=== PATIENT | male | born 1955 | race Caucasian/White ===

== ENCOUNTER 2020-01-29 13:10 | Outpatient (CLI) | payer OTHER, SELFPAY ==
--- NOTE | ~2020-01-29 | MM_ITS ---
EXAMINATION: MM diagnostic mammo unilat RT HISTORY: Screening mammogram TECHNIQUE: Full field digital craniocaudal and mediolateral oblique views of the right breast were ob tained. Mediolateral oblique view of the left breast is obtained. CAD analysis was submitted and inte rpreted. COMPARISON: No prior mammogram is available for comparison at this institution. BREAST PARENCHYMAL COMPOSITION: The breasts are almost entirely fatty. FINDINGS: There is flame-shaped subareolar density in the right breast which is asymmetric compared t o the left. No suspicious mass, calcification, or architectural distortion are identified. IMPRESSION: 1. Findings consistent with asymmetric gynecomastia, left greater than right. Clinical follow-up is r ecommended. BI-RADS Category 2: Benign finding(s). Reviewed, dictated and finalized at location A. 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 Findings consistent with asymmetric gynecomastia, left greater than right. C linical follow-up is recommended. BI-RADS Category 2: Benign finding(s).
== END 2020-01-29 13:11 | disposition home or self-care (01) ==
LOC: ANHIMG 13:14
PROVIDERS: PCP Nurse Practitioner Adult Health; Visit Provider Nurse Practitioner Adult Health
DX: N62 Hypertrophy of breast (principal)
CPT/HCPCS: 77065

== ENCOUNTER 2020-02-10 14:11 | Outpatient (CLI) | payer OTHER, SELFPAY ==
--- NOTE | ~2020-02-10 | CT_ITS ---
EXAMINATION: CT abdomen pelvis w con DATE: 02/10/2020 14:52 INDICATION: Prostate cancer. TECHNIQUE: Computed tomography (CT) of the abdomen and pelvis was performed with 100 mL Omnipaque 350 intravenous contrast. Automated exposure control and iterative reconstruction technique were employe d. The dose-length product was 231.10 mGy-cm. COMPARISON: None. FINDINGS: The visualized portions of the lung bases are clear without pneumonia or pleural effusion. The heart size is normal. No pericardial effusion. Calcifications in the liver and spleen are consist ent with old granulomatous disease. The gallbladder, pancreas, adrenal glands, and right kidney are n ormal. There is a 6 mm cyst in left kidney. The prostate is mildly enlarged. There is diverticulosis of the colon without evidence of diverticulitis. There are no dilated loops of bowel. The appendix is normal. There are no pathologically enlarged lymph nodes. There is no free intraperitoneal fluid. Th ere is severe lumbar spondylosis. IMPRESSION: 1. No evidence of metastatic disease. Reviewed, dictated and finalized at location A. 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
[2020-02-10 14:42] LABS: Estimated Glomerular Filt Rate > 60
== END 2020-02-10 14:12 | disposition home or self-care (01) ==
PROVIDERS: PCP Nurse Practitioner Adult Health; Visit Provider Urology
DX: C61 Malignant neoplasm of prostate (principal)
CPT/HCPCS: 74177; Q9967

== ENCOUNTER 2020-05-18 09:23 | Outpatient (CLI) | payer OTHER, SELFPAY ==
--- NOTE | ~2020-05-18 | XR_ITS ---
EXAMINATION: XR chest 2V DATE: 05/18/2020 10:18 INDICATION: Malignant neoplasm of prostate. TECHNIQUE: Frontal and lateral views of the chest were obtained. COMPARISON: CT abdomen and pelvis 02/10/2020 FINDINGS: Calcified left lung nodules and calcified left hilar lymph nodes are consistent with old gr anulomatous disease. No pleural effusion or pneumothorax. The heart size is normal. IMPRESSION: 1. No acute cardiopulmonary disease. Reviewed, dictated and finalized at location A. ON PAINTER
--- NOTE | 2020-05-18 09:55 | ECG_ITS ---
Measurements Intervals [place] Rate: 85 P: 45 CO: 165 QRS: 66 QRSD: 98 T: 49 QT: 342 QTc: 408 Interpretive Statements SINUS RHYTHM BASELINE ARTIFACT- I, II, III, AVL, AVF NORMAL ECG Electronically Signed On 05-18-2020 10:13:43 DAMPENER by Homar Landry D.O.
[2020-05-18 11:09] LABS: Basophils Percent Auto 0.5 % (0.2-1.2); Eosinophils Absolute Auto 0.1 K/mm3 (0-0.3); Eosinophils Percent Auto 0.8 % (0-4.4); Hematocrit 42.2 % (42.0-52.0); Hemoglobin 13.9 g/dL (14.0-18.0); Immature Granulocyte Absolute 0.03 K/mm3 (0.00-0.031); Immature Granulocyte Percent A 0.5 % (0-0.5); Lymphocytes Absolute Auto 1.68 K/mm3 (0.9-3.2); Lymphocytes Percent Auto 26.8 % (18.3-44.2); Mean Corpuscular HGB Conc 32.9 g/dl (32-36); Mean Corpuscular Hemoglobin 30.8 pg (26-34); Mean Corpuscular Volume 93.4 fl (80-100); Mean Platelet Volume 9.5 fl (7.4-10.4); Monocytes Absolute Auto 0.7 K/mm3 (0.1-0.6); Neutrophils Absolute Auto 3.8 K/mm3 (1.3-6.7); Neutrophils Percent Auto 60.4 % (45.5-73.1); Platelet Count Result 293 k/mm3 (150-375); Red Blood Count 4.52 M/mm3 (4.6-6.20); Red Cell Distribution Width 13.8 % (11.5-14.5); White Blood Count 6.3 K/mm3 (4.5-10.0)
[2020-05-18 11:13] LABS: Add Urine Microscopic? YES; Appearance Urine Clear (Clear); Bilirubin Urine Negative (Negative); Blood Urine Negative (Negative); Color Urine Yellow (Yellow); Glucose Urine UA Negative (Negative); Ketones Urine Negative (Negative); Leukocyte Esterase Ur Negative LEU/UL (Negative); Nitrate Urine Negative (Negative); Protein Urine 1+ mg/dL (Negative); RBC Urine 0-2 /hpf (0-2); Specific Grav Ur 1.018 (1.001-1.035); Urobilinogen Urine Negative mg/dL (<2.0); WBC Urine 0-3 /hpf
[2020-05-18 11:22] LABS: Alanine Aminotransferase 22 U/L (4-50); Albumin Level 4.8 g/dL (3.5-5.1); Alkaline Phosphatase 55 U/L (38-126); Anion Gap 7 mmol/L (8-16); Aspartate Amino Transferase 37 U/L (17-59); Bilirubin,Total 0.4 mg/dL (0.2-1.3); Blood Urea Nitrogen 14 mg/dL (9-20); Calcium 9.8 mg/dL (8.4-10.2); Carbon Dioxide 31 mmol/L (22-30); Chloride 101 mmol/L (98-107); Estimated Glomerular Filt Rate > 60; Glucose 109 mg/dL (75-110); INR 0.9; Potassium 4.5 mmol/L (3.4-5.0); Prothrombin Time 12.8 Seconds (11.1-14.7); Sodium 139 mmol/L (137-145)
[2020-05-18 11:23] LABS: Partial Thromboplastin Time 30.3 SECONDS (22.3-36.8)
== END 2020-05-18 09:24 | disposition home or self-care (01) ==
PROVIDERS: PCP Nurse Practitioner Adult Health; Visit Provider Urology
DX: Z01.818 Encounter for other preprocedural examination (principal); C61 Malignant neoplasm of prostate
CPT/HCPCS: 36415; 71046; 80053; 81001; 85025; 85610; 85730; 86850; 86900; 86901; 93005

== ENCOUNTER → 2020-05-24 00:29 | Outpatient (CLI) | payer OTHER, SELFPAY ==
[2020-05-24 18:02] LABS: SARS-CoV-2 RNA PCR Negative
== END ==
PROVIDERS: PCP Nurse Practitioner Adult Health; Visit Provider Urology
DX: Z01.812 Encounter for preprocedural laboratory examination (principal); Z20.822 Contact with and (suspected) exposure to COVID-19
CPT/HCPCS: C9803; U0003; U0005

== ENCOUNTER 2020-05-27 00:12 | Day surgery (SDC) | payer OTHER, SELFPAY ==
--- NOTE | 2020-05-18 07:53 | P.HP_ITS ---
H&P: HPI History of Present Illness Date/Time: 05/18/20 07:53 Chief Complaint: Prostate cancer Narrative: Atif Rinaldi is a 65 year old male Wound in February 2020 to have a PSA elevation to 19.2. Prostate ultrasound and biopsy showed 4 of 12 cores with Bob 6 and 3+4=7. Recent CT scan the abdomen pelvis with contrast showed no evidence of metastatic disease. Prostate volume by ultrasound was 24 g. After careful discussion of therapeutic options including radiation therapy and its various forms, active surveillance, androgen deprivation and robotic prostatectomy he has elected for the latter. He is aware of the risk of this procedure including, but not limited to, adverse cardiopulmonary events, rectal injury, very to control his cancer with need for adjuvant therapy, erectile dysfunction and urinary incontinence. Review of Systems Cardiovascular: Cardiovascular: Denies chest pain, Denies lightheadedness, Denies palpitations and Denies dyspnea Respiratory: Respiratory: Denies dyspnea Gastrointestinal: Gastrointestinal: Denies diarrhea, Denies nausea and Denies vomiting Genitourinary: Genitourinary: Denies hematuria and Denies dysuria Endocrine: Endocrine: Denies palpitations Exam Const: General: no acute distress Resp: Effort & Inspection: normal respiratory effort GI: Inspection: non-distended GI Palp: No abdominal tenderness and No Guarding due to palpation present (GI) Auscultation: normal bowel sounds Assessment and Plan Assessment and plan (1) Prostate cancer: Code(s): C61 - Malignant neoplasm of prostate Status: Acute Assessment and Plan: * Robotic assisted radical prostatectomy and bilateral pelvic lymphadenectomy
[2020-05-18 09:38] VITALS: BP 160/90; PULSE 90; RESP 20; TEMP 36.3; O2SAT 100; BMI 23.0
--- NOTE | 2020-05-26 13:36 | WPDANESEPPF ---
Anes - Initial Pre Proc Eval Procedure: Operation Date: 05/27/20 07:30 Proposed Procedures p Robotic Assisted Laparoscopic Prostatectomy With Bilateral Pelvic Lymph Node Dissection - Efraín Núñez MD Date/Time: 05/26/20 13:36 Surgeon: Efraín Núñez MD Pre Op Diagnosis: Prostate Cancer Patient Data Age: 65 Gender: M Height: 5 ft 8 in Weight: 68.7 kg Last Vital Signs Temp 97.4 F L 05/18/20 09:38 Pulse 90 05/18/20 09:38 Resp 20 05/18/20 09:38 BP 160/90 H 05/18/20 09:38 Pulse Ox 100 05/18/20 09:38 Allergies Allergy/AdvReac Type Severity Reaction Status Date / Time No Known Allergies Allergy Verified 05/27/20 06:12 Home Medications Medication Instructions Recorded Confirmed Type No Home Medications 05/18/20 05/27/20 History Patient hx anesthesia problems: none Family hx anesthesia problems: none [facility] Past Medical History Medical History (Updated 05/26/20 @ 13:35 by Scott Gloria MD) Prostate cancer Social History Social History Smoking status: Never smoker Second hand tobacco smoke exposure: No Additional smoking assessment comments: DENIES ANY TOBACCO USE Alcohol intake: current Drinks per week: 50 Alcohol use details: BEER Substance use: current Substance use type: marijuana Other substance usage details: OCCASIONAL 2-3 TOKES Last use: 05/17/20 Living arrangements: with family Spiritual care concerns: No Anes - Eval Final PreProcedure Day of Procedure 05/26/20 13:36 Patient weight: normal Heart: regular rate and rhythm Lungs: clear to auscultation Airway: Mallampati scale class II Neurological: alert and oriented Last oral intake: >/= 8 hours ASA classification: III Emergent: no Anesthetic plan: proceed Anesthesia type and monitoring: general ETT and standard monitoring Informed Consent: The patient's anesthetic plan and its attendant risks and benefits were discussed with the patient/family/POA. Questions were solicited and answers provided to the satisfaction of the patient/family/POA.
[2020-05-27] VITALS (13 sets, daily range): BP systolic 121–181; BP diastolic 60–94; PULSE 73–102; RESP 12–16; TEMP 36.3–37.3; O2SAT 95–100
[2020-05-27] MEDS: LACTATED RINGERS 1,000 ML 30 ML IV CONT ×2 (06:36→11:24)
--- NOTE | 2020-05-27 06:37 | WPDHPUPDATE1 ---
History and Physical Update Update Date/Time: 05/27/20 06:37 History and Physical has been reviewed, including an updated exam of the patient. There are NO changes in the patient's condition. Risks, benefits, and alternatives have been discussed and questions answered. Patient agrees to proceed with procedure.
[2020-05-27] MEDS: ceFAZolin 2 GM/D5W 50 ML 2 GM/50 ML BAG IVPB (07:26)
--- NOTE | 2020-05-27 11:21 | PM.PROC ---
Procedure Note - Detailed Date of procedure: 05/27/20 Pre-op diagnosis: Prostate Cancer Procedure performed: Robotic-asssited radical prostatectomy and bilateral pelvic lymphadenectomy Description of procedure: The patient was brought to the operative suite, where he was prepped and draped in routine sterile fashion while in a dorsal lithotomy, deep Trendelenburg position. A supraumbilical 10 mm trocar was placed after insufflation of the abdomen with a Veress needle. Three robotic ports were then placed under direct vision. Two of these were placed in the right lower quadrant - 10 cm and 20 cm lateral to, and in line with, the umbilicus. A third robotic trocar was placed 10 cm to the left of the umbilicus, and 20 cm to the left of the umbilicus, a 12 mm standard laparoscopic trocar was placed to be used as an speech pathologist assistant port. Lastly, a 5 mm trocar was placed in the left upper quadrant midway between the umbilicus and the left robotic trocar. Attention was then turned to the prostatectomy. I opted for a posterior approach in this patient. An incision was made in the parietal peritoneum along the posterior bladder/posterior prostate about 2 cm above the reflection of the peritoneum over the anterior rectum. The seminal vesicles and vas deferens were immediately identified. Dissection is undertaken in a fashion so as to avoid electrocautery as much as possible, particularly near the tips of the seminal vesicles. Dissection was also carried out in the midline so as to avoid any encounters with the ureters. The vas deferens and the seminal vesicles were dissected in their entirety to the base of the prostate. The plane anterior to Denoviller's fascia, anterior to the rectum and posterior to the prostate was then developed. I then dropped the bladder by incising the anterior parietal peritoneum just lateral to the median umbilical ligaments bilaterally. The bladder was dropped from the anterior abdominal and pelvic wall. The endopelvic fascia was identified and incised bilaterally, allowing for dissection of the posterior-lateral aspect of the prostate. The puboprostatic ligaments were transected near their origin from the posterior pubic ramus. This posterior lateral dissection of the prostate is also undertaken in a fashion so as to avoid electrocautery as much as possible. The dorsal vein of the penis is then secured with an 0 -Vicryl ligature. Attention is then turned to the bladder neck. The anterior bladder neck is incised at the vesico-prostatic junction. The previously placed urethral catheter was drawn through the urethrotomy. A very small bladder neck was maintained throughout the remainder of this dissection. The posterior bladder neck was incised in a fashion so as to avoid any injury to the ureteral orifices. Again, the small aperture of the bladder neck was maintained. The previously dissected vas deferens and the seminal vesicles were brought through the posterior bladder neck incision. The lateral prostatic pedicles were then carefully dissected from the lateral aspect of the prostate bilaterally. The prostatic pedicles were secured with Weck clips and transected. The neurovascular bundles were carefully dissected from the posterior-lateral aspect of the prostate. The dorsal vein of the penis was incised with electrocautery. Using cold scissors, the urethra was incised. After withdrawing the previously placed urethral catheter, the posterior urethra was sharply incised, as was the rectalurethralis muscle. Attention was then turned to a bilateral pelvic lymphadenectomy. The limits of this dissection were similar bilaterally. Specifically, the limits were the bifurcation of the common iliac vein proximally, the inguinal ligament distally, the obturator nerve posteriorly and the anterior aspect to the external iliac vein laterally. This dissection was undertaken with care to avoid any injury to the obturator nerve. The prostate, seminal vesicles a
[2020-05-27] MEDS: HYDROmorphone HCL INJ (*CRX) 1 MG/ML SYR 0.5 MG IV PUSH ×3 (11:30→12:07)
--- NOTE | 2020-05-27 12:45 | ADMGEN ---
This patient, Atif Rinaldi III, was admitted to 2 Medical Room 260-01. Patient/family oriented to hospital policies and general routines including ID bracelet, bed and alarms, visiting hours, pain management, procedures, bathroom and other care routines, personal items, smoking policy, room service/diet, and visiting hours. Information on how to activate the Rapid Response Team has been discussed. Patient/Family are encouraged to report perceived risks to care and to ask questions if they do not understand what they are told or what they should do.
[2020-05-27] MEDS: LACTATED RINGERS 1,000 ML 125 ML IV CONT ×2 (13:00→22:14)
[2020-05-27] MEDS: KETOROLAC 30 MG/ML VIAL (*BKC) IV PUSH ×2 (14:43→21:30)
[2020-05-28 02:18] VITALS: BP 127/75; PULSE 68; RESP 18; TEMP 37.2; O2SAT 100
[2020-05-28] MEDS: KETOROLAC 30 MG/ML VIAL (*BKC) IV PUSH ×2 (02:56→09:45)
[2020-05-28 03:53] VITALS: PULSE 68; RESP 18; O2SAT 100
[2020-05-28 05:18] LABS: Hematocrit 28.2 % (42.0-52.0); Hemoglobin 9.6 g/dL (14.0-18.0)
[2020-05-28 05:42] LABS: Anion Gap 2 mmol/L (8-16); Blood Urea Nitrogen 8 mg/dL (9-20); Calcium 8.1 mg/dL (8.4-10.2); Carbon Dioxide 26 mmol/L (22-30); Chloride 99 mmol/L (98-107); Estimated CRCL calculation 78 ml/min; Estimated Glomerular Filt Rate > 60; Glucose 103 mg/dL (75-110); Potassium 3.3 mmol/L (3.4-5.0); Sodium 127 mmol/L (137-145)
[2020-05-28] MEDS: LACTATED RINGERS 1,000 ML 125 ML IV CONT (05:49)
[2020-05-28 06:23] VITALS: BP 115/65; PULSE 67; RESP 18; TEMP 36.7; O2SAT 99
--- NOTE | 2020-05-28 07:08 | WPDUROPN2 ---
Progress Note: A&P Assessment and Plan (1) Prostate cancer: Code(s): C61 - Malignant neoplasm of prostate Status: Acute Assessment and Plan: Doing well POD #1. Increase diet and ambulation this morning. Home when tolerating diet/ambulating. Subjective Subjective Date/Time Seen: 05/28/20 07:08 Gas pains late last night - much improved with passing flatus early this morning. No n/v Review of Systems Cardiovascular: Cardiovascular: Denies chest pain, Denies lightheadedness, Denies palpitations and Denies dyspnea Respiratory: Respiratory: Denies dyspnea Gastrointestinal: Gastrointestinal: Denies diarrhea, Denies nausea and Denies vomiting Genitourinary: Genitourinary: Denies hematuria and Denies dysuria Endocrine: Endocrine: Denies palpitations Exam Const: General: no acute distress Resp: Effort & Inspection: normal respiratory effort GI: Inspection: non-distended GI Palp: No abdominal tenderness and No Guarding due to palpation present (GI) Auscultation: normal bowel sounds Objective Data Vital Signs Vital Signs: Vital Signs - 24 hr 05/27/20 11:24 05/27/20 11:35 05/27/20 11:50 Temperature 97.3 F L Pulse Rate 102 H 86 87 Respiratory Rate 14 14 14 Blood Pressure 181/88 H 164/74 H 165/94 H Pulse Oximetry 100 100 100 05/27/20 12:05 05/27/20 12:20 05/27/20 12:35 Temperature 97.9 F Pulse Rate 92 75 82 Respiratory Rate 14 12 12 Blood Pressure 150/81 H 144/73 H 128/72 Pulse Oximetry 100 98 95 05/27/20 12:50 05/27/20 13:05 05/27/20 13:35 Temperature 97.4 F L 97.6 F 98.2 F Pulse Rate 86 85 85 Respiratory Rate 14 14 16 Blood Pressure 138/75 144/60 H 130/60 Pulse Oximetry 100 100 98 05/27/20 14:23 05/27/20 18:23 05/27/20 21:57 Temperature 98.0 F 99.0 F 99.1 F Pulse Rate 95 87 73 Respiratory Rate 16 16 16 Blood Pressure 153/69 H 157/74 H 121/71 Pulse Oximetry 100 100 100 05/28/20 02:18 05/28/20 03:53 05/28/20 06:23 Temperature 98.9 F 98.0 F Pulse Rate 68 68 67 Respiratory Rate 18 18 18 Blood Pressure 127/75 115/65 Pulse Oximetry 100 100 99 Intake/Output Intake/Output: Intake & Output 05/25/20 05/26/20 05/27/20 05/28/20 23:59 23:59 23:59 23:59 Intake Total 1650 1350 Output Total 50 550 Balance 1600 800 Meds/Results Medications: Active Medications Generic Name Dose Route Start Last Admin Trade Name Freq PRN Reason Stop Dose Admin Hyoscyamine 0.125 mg 05/27/20 12:38 Hyoscyamine Sulfate 0.125 Mg Tablet SUBLINGUAL Q4H PRN Bladder Spasm Lactated Ringer's 1,000 mls @ 125 mls/hr 05/27/20 12:38 05/28/20 05:49 Lr - Lactated Ringers Iv IV CONT 125 mls/hr .Q8H KATIE Administration Acetaminophen 1,000 mg in 100 mls @ 400 mls/hr 05/27/20 18:00 05/28/20 05:51 Ofirmev 1,000 Mg Ivpb IVPB 05/28/20 18:01 Infused Q6HR KATIE Infusion Ketorolac Tromethamine 30 mg 05/27/20 12:38 05/28/20 02:56 Ketorolac 30 Mg/Ml Vial (*Bk) IV PUSH 05/28/20 12:39 30 mg Q6H PRN Administration Pain Rated 4-6 Levofloxacin 500 mg 05/28/20 09:00 Levofloxacin Tab 500 Mg Tablet PO DAILY KATIE Naloxone HCl 0.1 mg 05/27/20 12:38 Naloxone Hcl 0.4 Mg/Ml Vial IV PUSH Q2M PRN Opiate Reversal Ondansetron HCl 4 mg 05/27/20 12:38 Ondansetron Inj 4 Mg/2 Ml Vial IV PUSH Q6H PRN Nausea And Vomiting Labs Labs: Laboratory Results - last 24 hr 05/28/20 05/28/20 05:08 05:08 Hgb 9.6 L D Hct 28.2 L Sodium 127 L Potassium 3.3 L Chloride 99 Carbon Dioxide 26 Anion Gap 2 L BUN 8 L D Creatinine 0.80 Estim Creat Clear Calc 78 Estimated GFR > 60 Glucose 103 Calcium 8.1 L
[2020-05-28 08:20] VITALS: BP 144/68; PULSE 72; RESP 16; TEMP 36.9; O2SAT 100
[2020-05-28 11:29] VITALS: BP 112/56; PULSE 76; RESP 14; TEMP 35.6; O2SAT 100
--- NOTE | 2020-05-28 11:55 | PM.DS ---
DS: Admitting Diagnosis Admitting Diagnosis Admitting Diagnosis: Prostate cancer DS: Summary Hospital Course Hospital Course: This patient was admitted on the morning of his planned robotic prostatectomy. This procedure was uneventful, as was his postoperative course. By the evening of the procedure he was sitting at the bedside in tolerating a liquid diet. The following morning he was ambulating freely and tolerating regular food. His catheter drainage remained essentially clear throughout. His postoperative hemoglobin and serum creatinine were unremarkable. At the time of discharge he has been instructed in appropriate care for his Ramirez catheter with both a leg bag and bedside bag. He will be discharged with plans to follow-up in 1 week with a cystogram. Time Spent with Patient Time attestation: Total time spent providing and/or coordinating discharge services: Exam Const: General: no acute distress Resp: Effort & Inspection: normal respiratory effort GI: Inspection: non-distended GI Palp: No abdominal tenderness and No Guarding due to palpation present (GI) Auscultation: normal bowel sounds DS: Data Data Completed and Pending Pending studies at discharge: Pending at discharge 05/27/20 10:28 Surgical [PTH] Routine Labs on day of discharge: Labs from last 24 hours 05/28/20 05/28/20 05:08 05:08 Hgb 9.6 L D Hct 28.2 L Sodium 127 L Potassium 3.3 L Chloride 99 Carbon Dioxide 26 Anion Gap 2 L BUN 8 L D Creatinine 0.80 Estim Creat Clear Calc 78 Estimated GFR > 60 Glucose 103 Calcium 8.1 L Discharge Plan Discharge Patient Disposition: Home, Self-Care Discharge Instructions: 1) Ramirez catheter -> leg bag / bedside bag at night. 2) No lifting/straining >15lbs. x3 weeks. 3) No driving x1-week. 4) Resume normal, pre-operative diet. 5) My office will contact regarding follow-up in 1-week with cystogram. Stand Alone Forms: General Discharge Instructions Discharge Orders: Discharge Order (Routine); Ordered 05/28/20 Ordered By: Efraín Núñez Discharge Medications: New hydrocodone-acetaminophen 5-325 mg tablet 1 - 2 tablet PO Q6H PRN (Reason: pain) Qty: 24 RF: 0 ciprofloxacin HCl 500 mg tablet 500 mg PO Q12H Qty: 10 RF: 0 hyoscyamine sulfate 0.125 mg tablet 0.125 mg PO Q6H PRN (Reason: bladder spasms) Qty: 20 RF: 2 docusate sodium [Colace] 100 mg capsule 100 mg PO DAILY Qty: 30 RF: 0
--- NOTE | 2020-05-28 13:12 | PC.NURSE ---
Educated patient and his on how to switch bonner catheter to a leg bag. Catheter switched over for discharge home. Also demonstrated switching back to gravity drainage bag and emptying catheter (both leg bag and larger drainage bag). Gave patient written education sheets on bonner catheter care and s/s to report to MD and when to return to ED. Patient and verbalized understanding of all instructions given.
--- NOTE | 2020-05-28 13:46 | PC.NURSE ---
On 05/28/20, the student, [Viral Rodriguez], provided care and completed [facility] documentation on this patient. I have reviewed the student's documentation and agree with the findings.
== END 2020-05-28 13:20 | disposition home or self-care (01) ==
LOC: ANHSURGERY 06:04 → ANH2MED 12:24
PROVIDERS: PCP Nurse Practitioner Adult Health; Visit Provider Urology
PROC: 0VT04ZZ Resection of Prostate, Percutaneous Endoscopic Approach (ICD-10-PCS; CPT 55867; principal; 2020-05-27 07:30)
DX: C61 Malignant neoplasm of prostate (principal); F12.90 Cannabis use, unspecified, uncomplicated
CPT/HCPCS: 55866; 38571; S2900; 36415; 80048; 85014; 85018; 88305; 88307; 88309; A9270; J0131; J0330; J0690; J1100; J1170; J1885; J2250; J2405; J2704; J2710; J3010; J7030; J7120

== ENCOUNTER 2020-06-04 10:56 | Outpatient (CLI) | payer OTHER, SELFPAY ==
--- NOTE | ~2020-06-04 | XR_ITS ---
EXAMINATION: XR cystogram EXAM DATE: 06/04/2020 11:44 INDICATION: Prostate cancer. TECHNIQUE: Cystogram was performed through Ramirez catheter in place on patient arrival. Dose reductio n digital pulsed fluoroscopy was used at 4 frames per second with DAP 8.5 Gycm2. Omnipaque 350 salin e solution was instilled through the catheter. FINDINGS: Patient tolerated approximately 175 cc of contrast. There was no ureteral reflux, bladder d iverticulosis or contrast extravasation. IMPRESSION: Unremarkable XR cystogram exam. Reviewed, dictated and finalized at location A.
== END 2020-06-04 10:57 | disposition home or self-care (01) ==
LOC: ANHIMG 11:00
PROVIDERS: PCP Nurse Practitioner Adult Health; Visit Provider Urology
DX: C61 Malignant neoplasm of prostate (principal)
CPT/HCPCS: 51600; 74430; Q9967

== ENCOUNTER 2020-06-28 08:26 | Outpatient (CLI) | payer OTHER, SELFPAY | END 2020-06-28 08:27 | disposition home or self-care (01) | LOC: ANHCOVIDVC 08:26 | PROVIDERS: PCP Nurse Practitioner Adult Health | DX: Z23 Encounter for immunization (principal) | CPT/HCPCS: 0001A; 91300 ==

== ENCOUNTER 2020-07-19 08:25 | Outpatient (CLI) | payer OTHER, SELFPAY | END 2020-07-19 08:26 | disposition home or self-care (01) | LOC: ANHCOVIDVC 08:25 | PROVIDERS: PCP Nurse Practitioner Adult Health | DX: Z23 Encounter for immunization (principal) | CPT/HCPCS: 0002A; 91300 ==

== ENCOUNTER 2025-01-17 07:32 | Outpatient (CLI) | payer OTHER, SELFPAY ==
[2025-01-17 08:05] LABS: Hematocrit 42.1 % (42.0-52.0); Hemoglobin 13.7 g/dL (14.0-18.0); Mean Corpuscular HGB Conc 32.5 g/dl (32-36); Mean Corpuscular Hemoglobin 29.6 pg (26-34); Mean Corpuscular Volume 90.9 fl (80-100); Platelet Count Result 277 k/mm3 (150-375); Red Blood Count 4.63 M/mm3 (4.6-6.20); White Blood Count 5.1 K/mm3 (4.5-10.0)
[2025-01-17 08:18] LABS: Alanine Aminotransferase 23 U/L (6-50); Albumin Level 4.6 g/dL (3.5-5.1); Alkaline Phosphatase 49 U/L (38-126); Anion Gap 7 mmol/L (4-12); Aspartate Amino Transferase 32 U/L (17-59); Bilirubin,Total 0.4 mg/dL (0.2-1.3); Blood Urea Nitrogen 15 mg/dL (9-20); Calcium 9.3 mg/dL (8.4-10.2); Carbon Dioxide 26 mmol/L (22-30); Chloride 98 mmol/L (98-107); Cholesterol 209 mg/dL (0-200); Estimated Glomerular Filt Rate > 60; Glucose 100 mg/dL (65-110); HDL Direct 109 mg/dL; Potassium 4.5 mmol/L (3.4-5.0); Sodium 131 mmol/L (137-145); Total Protein 7.3 g/dL (6.3-8.2); Triglycerides 37 mg/dL (<150)
[2025-01-17 08:22] LABS: Iron 70 ug/dL (49-181)
[2025-01-17 08:35] LABS: Percent Iron Saturation 24 % (20-50)
[2025-01-17 09:03] LABS: Ferritin 122.00 ng/mL (11.1-264)
[2025-01-17 09:13] LABS: Vitamin B12 314.0 pg/mL (239-931)
== END 2025-01-17 07:33 | disposition home or self-care (01) ==
PROVIDERS: PCP Family Medicine; Visit Provider Family Medicine
DX: Z13.220 Encounter for screening for lipoid disorders (principal); D64.9 Anemia, unspecified; E87.1 Hypo-osmolality and hyponatremia
CPT/HCPCS: 36415; 80053; 80061; 82607; 82728; 83540; 83550; 85027